=== PATIENT | female | born 1955 | race Caucasian/White ===

== ENCOUNTER → 2024-03-14 | Day surgery (SDC) | payer MEDICARE, BC ==
[2024-03-08 14:49] LABS: BASOPHILS # (AUTO) 0.1 (0.0-0.1); BASOPHILS % 2.8 % (0.0-1.0); EOSINOPHILS # (AUTO) 0.1 (0.0-0.4); EOSINOPHILS % 1.8 % (0.0-6.0); HEMATOCRIT 45.1 % (34.2-44.1); HEMOGLOBIN 13.5 g/dL (12.0-16.0); LYMPHOCYTES # (AUTO) 0.9 (1.0-3.2); MEAN CORPUSCULAR HEMOGLOBIN 29.2 pg (28-32); MEAN CORPUSCULAR HGB CONC 29.9 g/dL (31-35); MEAN CORPUSCULAR VOLUME 97.4 fL (81-99); MONOCYTES # (AUTO) 0.3 (0.2-0.8); NEUTROPHILS # (AUTO) 3.6 (2.1-6.9); NEUTROPHILS % 72.2 % (38.7-80.0); PLATELET COUNT 195 x10e3/uL (140-360); RED BLOOD COUNT 4.63 x10e6/uL (3.6-5.1); RED CELL DISTRIBUTION WIDTH 13.2 % (11.7-14.4); WHITE BLOOD COUNT 5.01 x10e3/uL (4.8-10.8)
[~2024-03-14] MED LIST: ACETAMINOPHEN 1000 MG/100 ML 100 ML IV ONE; ALBUTEROL/IPRATROPIUM 3 ML NEB ONE; BUPIVACAINE HCL 0.5% INJ 30 ML VIAL INJ ONE; COREG6.25 MG PO; ERYTHROMYCIN PO; HYDROCODON-ACE1 EA11 PO; MICARDIS80 MG PO; MUPIROCIN 2% OINT 22 GM TUBE ONE; OMEPRAZOLE40 MG PO; PREDNISONE10 MG PO; SPIRONOLACTONE25 MG PO; VENTOLIN HFA18 GM INH; VITAMIN D31250 MCG
[2024-03-14] MEDS: LACTATED RINGER'S 1,000 ML ONE (06:30)
[2024-03-14 07:11] VITALS: PULSE 55; RESP 18; O2SAT 94
[2024-03-14 09:21] VITALS: TEMP 97.4
[2024-03-14] MEDS: ACETAMINOPHEN 1000 MG/100 ML IV ONE (09:30)
[2024-03-14 10:15] VITALS: BP 124/70; PULSE 57; RESP 18; O2SAT 94
== END | disposition home or self-care (01) ==
LOC: OR 06:00
PROVIDERS: ATTEND Plastic Surgery
DX: G56.22 Lesion of ulnar nerve, left upper limb (principal); G56.02 Carpal tunnel syndrome, left upper limb; I10 Essential (primary) hypertension; E78.5 Hyperlipidemia, unspecified; J44.9 Chronic obstructive pulmonary disease, unspecified; Z87.891 Personal history of nicotine dependence; K44.9 Diaphragmatic hernia without obstruction or gangrene; I49.1 Atrial premature depolarization; R00.1 Bradycardia, unspecified; Z01.810 Encounter for preprocedural cardiovascular examination; Z01.812 Encounter for preprocedural laboratory examination; Z79.899 Other long term (current) drug therapy; Z79.52 Long term (current) use of systemic steroids; Z85.118 Personal history of other malignant neoplasm of bronchus and lung
CPT/HCPCS: 36415; 64718; 64721; 71046; 85025; 93005; 94640; 94799; J0131; J0690; J7121